=== PATIENT | female | born 1970 | race Caucasian/White ===

== ENCOUNTER 2017-02-10 21:00 | Emergency (ER) | payer OTHER ==
[2017-02-10 21:10] VITALS: TEMP 97.9
--- NOTE | 2017-02-10 21:21 | EDPHY ---
H & P Time Seen by Provider: 02/10/17 21:13 HPI/ROS: CHIEF COMPLAINT: Productive cough HISTORY OF PRESENT ILLNESS: This is a 46-year-old female presenting to the emergency department complaining cough times 2-3 weeks, cough has now become productive with intermittent fever and chills. Denies any shortness of breath at this time no nausea no vomiting. Patient states she is a smoker half a pack per day x1 year, also smokes marijuana several times a day, denies any other drugs or alcohol. REVIEW OF SYSTEMS: Constitutional: Intermittent fevers and chills. Fatigue Eyes: No discharge. ENT: Intermittent sore throat. Cardiovascular: No chest pain, no palpitations. Respiratory: Productive (green) cough, no shortness of breath. Gastrointestinal: No abdominal pain, no vomiting. Genitourinary: No hematuria. Musculoskeletal: No back pain. Skin: No rashes. Neurological: No headache. Smoking Status: Current every day smoker Physical Exam: General Appearance: Alert, no distress. Afebrile VSS HEENT: Normocephalic atraumatic. Pupils equal and round no pallor or injection. Mucous membranes moist, posterior oropharynx erythemic no tonsillar hypertrophy no exudate TMs bilaterally non serous middle ear effusion nontender on exam. Respiratory: There are no retractions, coarse bilaterally. Positive cough noted on exam Cardiovascular: Regular rate and rhythm. Gastrointestinal: Abdomen is soft and nontender, no masses, bowel sounds normal. Neurological: No focal deficits. Answering questions appropriately Skin: Warm and dry, no rashes. No pallor Musculoskeletal: Neck is supple nontender. No anterior cervical lymphadenopathy Extremities: symmetrical, full range of motion. Psychiatric: Patient is oriented X 3, there is no agitation. Patient acting appropriately Constitutional: Initial Vital Signs Temperature (C) 36.6 C 02/10/17 21:06 Heart Rate 56 L 02/10/17 21:06 Respiratory Rate 18 02/10/17 21:06 Blood Pressure 112/66 02/10/17 21:06 O2 Sat (%) 97 02/10/17 21:06 O2 Delivery Mode Room Air Allergies/Adverse Reactions: No Known Allergies Allergy (Unverified 02/10/17 21:05) Home Medications: Medication Instructions Recorded Albuterol Sulfate [Proair Hfa] 8.5 gm IH Q4-6PRN PRN #1 [email or web address] 02/10/17 FLUoxetine 02/10/17 Hydroxyzine HCl 02/10/17 Risperidone 02/10/17 predniSONE 20 mg PO BID #10 tab 02/10/17 Medical Decision Making - Diagnostics Imaging Results: Imaging Impressions Chest X-Ray 02/10/17 21:21 Impression: Normal. ED Course/Re-evaluation: Discussed ED plan of care: Chest x-ray 2230: Discussed x-ray results negative for pneumonia. Discharge home---> stable, discussed discharge instructions with patient and mother Differential Diagnosis: Other differential diagnosis considered but not limited to pneumonia, pleural effusion, and pneumothorax - Data Points Medications Given: Discontinued Medications Prednisone (Prednisone) 40 mg PO EDNOW STA Stop: 02/10/17 22:33 Last Admin: 02/10/17 22:38 Dose: 40 mg Departure - Departure Disposition: Home, Routine, Self-Care Clinical Impression: Bronchitis Condition: Good Instructions: Acute Bronchitis (ED) Additional Instructions: 1. Take medications prescribed 2. Use inhaler as indicated for cough and bronchospasm 3. You can also take lkeb-aot-wienihl Robitussin which contains dextromethorphan to help suppress cough 4. I would also recommend stop smoking 5. If any symptoms worsen fever chills shortness of breath return to the emergency department Referrals: [facility] [Other] - As per Instructions Prescriptions: Albuterol Sulfate [Proair Hfa] 8.5 gm IH Q4-6PRN PRN #1 hfa.[email or web address] PRN Reason: Cough, Moderate predniSONE 20 mg PO BID #10 tab
[2017-02-10] MEDS ORDERED: predniSONE 20 MG TAB PO STA (22:32)
[2017-02-10 22:56] VITALS: BP 120/50; PULSE 50; RESP 16; O2SAT 95
== END 2017-02-10 22:55 | disposition home or self-care (01) ==
DX: J40 Bronchitis, not specified as acute or chronic (principal); F17.200 Nicotine dependence, unspecified, uncomplicated

== ENCOUNTER 2017-02-11 11:19 | Emergency (ER) | payer OTHER ==
[2017-02-11 11:41] VITALS: BP 129/77; PULSE 59; RESP 18; TEMP 98.1; O2SAT 97
--- NOTE | 2017-02-11 13:37 | EDPHY ---
H & P Time Seen by Provider: 02/11/17 13:36 HPI/ROS: Chief complaint. Med clearance for psychiatric admission HPI. 46-year-old female who has been evaluated by [facility] for admission is sent here for medical clearance and blood work. The patient tells me her world is coming"unravelled". She is attempted suicide previously. She has not tried to harm herself this time but is concerned that she may. She has been evaluated by [facility] and they are planning to admit her. She denies trying to harm herself including taking too many medications. She is not ill. She has no complaint of chest pain, shortness of breath, abdominal pain. Denies urinary symptoms. ROS Constitutional. no fever/chills, no weakness Eyes. no problems with vision ENT. no sore throat, no nasal drainage Cardiovascular. no chest pain Respiratory. no shortness of breath, no cough Abdominal. no abdominal pain, no nausea/vomiting, no diarrhea . no problems urinating MS. no calf pain/swelling, no neck/back pain, no joint pain Skin. no rash Lymph. no swollen glands Neuro. no headache, no dizziness, no difficulty walking or with speech Past Medical/Surgical History: Past medical history is significant for psychiatric illness and asthma Social History: Single, daily smoker, no alcohol Smoking Status: Current every day smoker Physical Exam: General Appearance: Alert well-developed female no distress vital signs are stable Eyes: Pupils equal and round no pallor or injection. ENT, Mouth: Mucous membranes are moist. Respiratory: There are no retractions, lungs are clear to auscultation. Cardiovascular: Regular rate and rhythm. Gastrointestinal: Abdomen is soft and nontender, no masses, bowel sounds normal. Neurological: Awake and alert, sensory and motor exams grossly normal. Skin: Warm and dry, no rashes. Musculoskeletal: Neck is supple nontender. Extremities symmetrical, full range of motion. Psychiatric: Patient is oriented X 3, there is no agitation. Constitutional: Initial Vital Signs Temperature (C) 36.7 C 02/11/17 11:38 Heart Rate 59 L 02/11/17 11:38 Respiratory Rate 18 02/11/17 11:38 Blood Pressure 129/77 H 02/11/17 11:38 O2 Sat (%) 97 02/11/17 11:38 O2 Delivery Mode Room Air Allergies/Adverse Reactions: No Known Allergies Allergy (Verified 02/11/17 11:37) Home Medications: Medication Instructions Recorded Albuterol Sulfate [Proair Hfa] 8.5 gm IH Q4-6PRN PRN #1 hfa.[email or web address] 02/10/17 FLUoxetine 02/10/17 Hydroxyzine HCl 02/10/17 Risperidone 02/10/17 predniSONE 20 mg PO BID #10 tab 02/10/17 Medical Decision Making ED Course/Re-evaluation: Patient's labs are reviewed. There is an elevated white blood cell count but there is no evidence for infection. She has no urinary symptoms. No cough or shortness of breath or fever. Patient is cleared medically for admission to psychiatric facility Differential Diagnosis: On re-evaluation the patient is stable. She is comfortable with admission to [address] [place] [address]. - Data Points Laboratory Results: Laboratory Results 02/11/17 13:00 02/11/17 13:00 02/11/17 02/11/17 02/11/17 Unknown 13:00 13:00 WBC RBC Hgb Hct MCV MCH MCHC RDW Plt Count MPV Neut % (Auto) Lymph % (Auto) [place] % (Auto) Eos % (Auto) Baso % (Auto) Nucleat RBC Rel Count Absolute Neuts (auto) Absolute Lymphs (auto) Absolute Monos (auto) Absolute Eos (auto) Absolute Basos (auto) Absolute Nucleated RBC Immature Gran % Immature Gran # Sodium 144 mEq/L mEq/L (134-144) Potassium 4.2 mEq/L mEq/L (3.5-5.2) Chloride 108 mEq/L mEq/L (97-110) Carbon Dioxide 22 mEq/l mEq/l (22-31) Anion Gap 14 mEq/L mEq/L (8-16) BUN 12 mg/dL mg/dL (7-23) Creatinine 0.8 mg/dL mg/dL (0.6-1.0) Estimated GFR > 60 Glucose 95 mg/dL mg/dL (70-100) Calcium 10.2 mg/dL mg/dL (8.5-10.4) Beta HCG, Qual NEGATIVE Urine Opiates Screen NEGATIVE (NEGATIVE) Urine Barbiturates NEGATIVE (NEGATIVE) Ur Phencyclidine Scrn NEGATIVE (NEGATIVE) Ur Amphetamine Screen NEGATIVE (NEGATIVE) U Benzodiazepines Scrn NEGATIVE (NEGATIVE) Urine Cocaine Screen NEGATIVE (NEGATIVE) U Marijuana (THC) Screen NON-NEGATIVE H (NEGATIVE) Ethyl Alcohol < 10 mg/dL mg/dL (0-10) 02/11/17 13:00 WBC 15.66 10^3/uL H 10^3/uL (3.80-9.50) RBC 5.06 10^6/uL 10^6/uL (4.18-5.33) Hgb 15.1 g/dL g/dL (12.6-16.3) Hct 44.8 % % (38.0-47.0) MCV 88.5 fL fL (81.5-99.8) MCH 29.8 pg pg (27.9-34.1) MCHC 33.7 g/dL g/dL (32.4-36.7) RDW 13.5 % % (11.5-15.2) Plt Count 276 10^3/uL 10^3/uL (150-400) MPV 11.7 fL fL (8.7-11.7) Neut % (Auto) 84.4 % H % (39.3-74.2) Lymph % (Auto) 9.3 % L % (15.0-45.0) [place] % (Auto) 5.4 % % (4.5-13.0) Eos % (Auto) 0.1 % L % (0.6-7.6) Baso % (Auto) 0.4 % % (0.3-1.7) Nucleat RBC Rel Count 0.0 % % (0.0-0.2) Absolute Neuts (auto) 13.21 10^3/uL H 10^3/uL (1.70-6.50) Absolute Lymphs (auto) 1.46 10^3/uL 10^3/uL (1.00-3.00) Absolute Monos (auto) 0.85 10^3/uL H 10^3/uL (0.30-0.80) Absolute Eos (auto) 0.01 10^3/uL L 10^3/uL (0.03-0.40) Absolute Basos (auto) 0.06 10^3/uL 10^3/uL (0.02-0.10) Absolute Nucleated RBC 0.00 10^3/uL 10^3/uL (0-0.01) Immature Gran % 0.4 % % (0.0-1.1) Immature Gran # 0.07 10^3/uL 10^3/uL (0.00-0.10) Sodium Potassium Chloride Carbon Dioxide Anion Gap BUN Creatinine Estimated GFR Glucose Calcium Beta HCG, Qual Urine Opiates Screen Urine Barbiturates Ur Phencyclidine Scrn Ur Amphetamine Screen U Benzodiazepines Scrn Urine Cocaine Screen U Marijuana (THC) Screen Ethyl Alcohol Departure - Departure Disposition: Home, Routine, Self-Care Clinical Impression: Suicidal ideation Condition: Fair Instructions: Suicide Prevention for Adults (ED) Additional Instructions: Go immediatly to the [facility] for further evaluation and placement to Psychiatric Facility Referrals: NONE *PRIMARY CARE P,. [Primary Care Provider] - As per Instructions
[2017-02-11 13:53] LABS: % IMMATURE GRANULYOCYTES 0.4 % (0.0-1.1); ABSOLUTE IMMATURE GRANULOCYTES 0.07 10^3/uL (0.00-0.10); ADD DIFF? NO; ADD MORPH? NO; ADD SCAN? NO; ATYPICAL LYMPHOCYTE FLAG 0 (0-99); FRAGMENT RBC FLAG 0 (0-99); HEMATOCRIT 44.8 % (38.0-47.0); HEMOGLOBIN 15.1 g/dL (12.6-16.3); LEFT SHIFT FLG 0 (0-99); LIPEMIA HEMOLYSIS FLAG 80 (0-99); MEAN CELL HEMOGLOBIN 29.8 pg (27.9-34.1); MEAN CELL HEMOGLOBIN CONCENTR. 33.7 g/dL (32.4-36.7); MEAN CELL VOLUME 88.5 fL (81.5-99.8); MEAN PLATELET VOLUME 11.7 fL (8.7-11.7); PLATELET CLUMPS FLAG 0 (0-99); PLATELET COUNT 276 10^3/uL (150-400); RED BLOOD CELL COUNT 5.06 10^6/uL (4.18-5.33); RED CELL DISTRIBUTION WIDTH 13.5 % (11.5-15.2)
[2017-02-11 13:58] LABS: ANION GAP 14 mEq/L (8-16); CALCIUM 10.2 mg/dL (8.5-10.4); CARBON DIOXIDE 22 mEq/l (22-31); CHLORIDE 108 mEq/L (97-110); CREATININE 0.8 mg/dL (0.6-1.0); ETHANOL SERUM < 10 mg/dL (0-10); GLOMERULAR FILTRATION RATE > 60; GLUCOSE 95 mg/dL (70-100); POTASSIUM 4.2 mEq/L (3.5-5.2); SODIUM 144 mEq/L (134-144)
== END 2017-02-11 17:01 | disposition home or self-care (01) ==
DX: R45.851 Suicidal ideations (principal); F17.200 Nicotine dependence, unspecified, uncomplicated
CPT/HCPCS: 80305; G0480